=== PATIENT | female | born 1935 | race Caucasian/White ===

== ENCOUNTER 2018-03-28 07:09 | Observation (INO) | payer MEDICARE, OTHER ==
[~2018-03-28] VITALS: Ht 157.5 cm; Wt 79.8 kg
[~2018-03-28 07:09] MED LIST: ASPIRIN81 M2 PO; ATENOLOL 25 MG25 M1 PO; BLACK COHOSH40 MG PO; CALCIUM 600 +1 EAC1 PO; CO Q-10100 MG PO; COLACE100 MG PO; DIOVAN320 MG PO; FISH OIL 1,0001 EAC5 PO; GLUCOPHAGE500 MG PO; HYDROCODONE-AP1 EAC6 PO; MIRALAX17 GM PO; MULTIVITAMINS1 EAC7 PO; NORVASC5 MG PO
[2018-03-28 07:14] VITALS: BP 165/85
[2018-03-28 07:31] LABS: ABSOLUTE LYMPHOCYTES 3.7 thou/uL (0.8-5.3); HEMOGLOBIN 15.4 gm/dL (12.0-15.0)
[2018-03-28 07:35] LABS: ABSOLUTE EOSINOPHILS 0.1 thou/uL (0.0-0.7); ABSOLUTE MONOCYTES 0.5 thou/uL (0.0-1.2); ABSOLUTE NEUTROPHILS 3.5 thou/uL (1.6-8.1); BASOPHILS 0.2 %; EOSINOPHILS 1.6 %; HEMATOCRIT 45.2 % (37.0-47.0); MCV 85.3 fL (80.0-100.0); MONOCYTES 6.6 %; MPV 9.6 fl. (7.2-11.1); NUCLEATED RBCS 0 /100WBC; PLATELET COUNT* 205 thou/uL (150-400); POLYS 44.6 %; RDW-CV 14.2 % (10.5-14.5); WBC 7.9 thou/uL (4.0-11.0)
[2018-03-28 07:44] LABS: APTT 27.7 Seconds (25.0-31.3); INR 1.1; PROTIME 10.3 Seconds (9.20-11.50)
[2018-03-28 07:51] LABS: ANION GAP 15 mmol/L (7-16); BUN 15 mg/dL (7-18); CHLORIDE 99 mmol/L (98-107); CO2 22 mmol/L (21-32); CREATININE 0.9 mg/dL (0.6-1.3); GLUCOSE 326 mg/dL (70-99); SODIUM 136 mmol/L (136-145)
[2018-03-28 08:13] LABS: ALKALINE PHOSPHATASE 183 U/L (46-116); CK-MB MASS 0.9 ng/mL (<0.5-3.6); LIPASE 102 U/L (73-393); NT-PRO BRAIN NAT PEPTIDE 118 pg/mL (<300); SGOT 35 U/L (15-37); SGPT 83 U/L (30-65); TOTAL BILIRUBIN 0.3 mg/dL (<0.1-1.0); TOTAL PROTEIN 8.4 g/dL (6.4-8.2); TROPONIN-I LEVEL <0.06 ng/mL (<0.06)
[2018-03-28 10:41] VITALS: BP 159/82
--- NOTE | 2018-03-28 10:42 | NUR ---
PATIENT HAS REMAINED NPO
[2018-03-28 16:42] VITALS: BP 157/73
--- NOTE | 2018-03-28 18:43 | EKG ---
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 AGGARWAL : 1935 Requested By: Neo Burks Order Number: [id number] MD: Devin Joiner Measurements Intervals [place] Rate: 65 P: 51 SC: 158 QRS: -35 QRSD: 91 T: 46 QT: 430 QTc: 448 Interpretive Statements Sinus rhythm Probable left atrial enlargement Inferior infarct, old Probable anterior infarct, age indeterminate Compared to ECG 05/15/2016 16:31:57 No significant changes Electronically Signed On 03-28-2018 18:43:24 CDT by Devin Joiner [email or web address] <ELECTRONICALLY SIGNED> By: Devin Joiner MD, [facility] 03/28/18 1843 Devin Joiner MD, [facility] /EPI
--- NOTE | 2018-03-28 19:18 | NUR ---
PATIENT RESTING IN BED. 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 RIGHT GROIN SITE CLEAN/DRY/INTACT WITH NO S/S OF HEMATOMA FORMATION. 2+ PULSES IN BILAT LOWER EXTREMETIES. HOURLY ROUNDING COMPLETD FOR PATINET SAFETY. PATIENT AOX4 AND APPROPRIATE.
[2018-03-28 20:11] VITALS: BP 137/57
[2018-03-29] VITALS (8 sets, daily range): BP systolic 133–158; BP diastolic 59–73
[2018-03-29 04:31] LABS: HEMOGLOBIN 13.5 gm/dL (12.0-15.0); MCH 28.7 pg (26.0-34.0); MCHC 33.8 g/dL (28.0-37.0); MCV 84.8 fL (80.0-100.0); MPV 9.9 fl. (7.2-11.1); RBC 4.71 mil/uL (4.20-5.00); RDW-CV 14.2 % (10.5-14.5); WBC 9.2 thou/uL (4.0-11.0)
[2018-03-29 04:51] LABS: ALBUMIN 3.4 g/dL (3.4-5.0); ALKALINE PHOSPHATASE 103 U/L (46-116); ANION GAP 13 mmol/L (7-16); BUN 11 mg/dL (7-18); CALCIUM 8.5 mg/dL (8.5-10.1); CHLORIDE 104 mmol/L (98-107); CHOLESTEROL 194 mg/dL (<200); CO2 21 mmol/L (21-32); CREATININE 0.7 mg/dL (0.6-1.3); GLUCOSE 351 mg/dL (70-99); HDL CHOLESTEROL 37 mg/dL (>40); LDL CHOLESTEROL 107 mg/dL (<100); POTASSIUM 3.8 mmol/L (3.5-5.1); SGOT 32 U/L (15-37); SGPT 72 U/L (30-65); SODIUM 138 mmol/L (136-145); TC:HDL 5.2 Ratio (Not establshd); TOTAL BILIRUBIN 0.6 mg/dL (<0.1-1.0); TOTAL PROTEIN 6.6 g/dL (6.4-8.2); TRIGLYCERIDE 254 mg/dL (<150); TROPONIN-I LEVEL 0.07 ng/mL (<0.06); VLDL 51 mg/dL (<40)
[2018-03-29 04:53] LABS: SERUM ASSESSMENT Clear
--- NOTE | 2018-03-29 05:28 | NUR ---
PT IS ABLE TO COMMUNICATE HER NEEDS TO STAFF EFFECTIVELY. SHE HAS DENIED THE NEED FOR PAIN MEDICATION UP TO THIS TIME. PT REMAINED ON BED REST UNTIL 23:30 ON 03/28/18 FOLLOWING HER CARDIAC CATH YESTERDAY. CATH SITE HAD SOME OOZ BLEEDING EARLY DURING THIS SHIFT; DRESSING CHANGED, PRESSURE HELD FOR 5 MIN WITH POSITIVE RESULT; NEW DRESSING C/D/I UP TO THIS TIME. NO OBSERVABLE EVIDENCE OF A HEMATOMA UP TO THIS TIME. POSSIBLE DISCHARGE HOME TODAY.
[2018-03-29] MEDS ORDERED: BRILINTA90 MG PO (10:26)
[2018-03-29] MEDS ORDERED: NITROGLYCERIN0.4 MG SUBLING (10:27)
[2018-03-29] MEDS ORDERED: LIPITOR 20 MG T20 M1 PO (10:28)
--- NOTE | 2018-03-29 10:38 | EKG ---
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
--- NOTE | 2018-03-29 11:09 | NUR ---
CM SPOKE TO THE PATIENT TO DISCUSS HOME SITUATION, DISCHARGE PLANNING, AND TO INFORM OF THE ROLE OF CM. PATIENT ALERT, ORIENTED, AND INDEPENDENT WITH ADL'S. PATIENT ACTIVE AND DRIVES. PATIENT OWNS 0 DME. PATIENT HAS NO HX OF HH OR SNF. CM WILL REMAIN AVAILABLE TO ASSIST AND FOLLOW NEEDED.
--- NOTE | 2018-03-29 14:15 | NUR ---
ORDER RECEIVED TO DISCHARGE [facility] HOME TO SELF CARE. MED REC, MEDICATION EDUCATION, STROKE EDUCATION, RIGHT GROUN SITE CARE, NEED FOR FOLLOW UP APPOINTMENTS WITH CARDIOLOGY, AND LFITING RESTICTIONS COVERED AND STATED UNDERSTOOD BY PATIENT AND . EDUCATION FOR NEW MEDICATIONS COMPLETED AND PATIENT GIVEN AMPLE TIME TO HAVE ALL QUESTION ANSWERED TO HER SATISFACTION. IV REMOVED FROM L AC AND TELEMETRY PACK REMOVED. HOURLY ROUNDING COMPLETED FOR PATIENT SAFETY AND PATIENT PARTICIPATE DIN PLAN OF CARE. PATIENT TAKEN VIA WHEELCHAIR TO AWAITING CAR WITH SPOUSWE PRESENT. PATENT IN NO APPARENT DISTRESS AT TIME OF DISCHARGE. DISCHARGE TIME OF 13:15.
--- NOTE | 2018-04-02 11:54 | CARD ---
[address] [address] CARDIAC CATH REPORT Name: MORENOASHER Room: [address] Herbie Sibley#: [id number] Admission: 03/28/18 Attend Phys: Bridgette Galeana Discharge: 03/29/18 Date of : 37 Report #: [id number] THIS REPORT FOR: //name// APPROVED REPORT Study performed: 03/28/2018 16:36:34 Patient Details Patient Status: In-Patient Room #: 201 The patient is a 82 year-old female Event Personnel Devin Joiner Salvage Inspector, Jenn White RN Plastic Surgery Manager, Silva Ritchie, Rose Mary Patten RTR Scrub, Stephanie Aguilar RN Plastic Surgery Manager Procedures Performed Art Access - R femoral artery* Left Heart Cath w/or w/o Coronaries [id number] [facility] Place w/wo Plasty Single LAD [id number] Indication Unstable angina Risk Factors Hypercholesterolemia, Hypertension Admission/Lab Medications/Medications given during procedure Aspirin, Platelet Aff. Inhib., Angiomax bolus and infusion Procedure Narrative The patient was brought electively to the Cardiac Catheterization Laboratory and was prepped and draped in a sterile manner. The right femoral was infiltrated with 2% Lidocaine subcutaneous anesthesia. A 6fr Ultimum Sheath sheath was inserted into the right femoral artery. Coronary angiography was performed using coronary diagnostic catheters. The right coronary system was accessed and visualized with a 6fr JR 4 catheter. The left coronary system was accessed and visualized with a 6fr JL 4 catheter. The left ventricle was accessed and visualized with a 6fr Straight Pigtail catheter. Left ventricular/Aortic Valve gradient assessed . Left ventriculogram was performed in DUFFY projection. Pre-demployment femoral angiogram was performed . Closure device was deployed with a 6 Fr Angioseal STS 6Fr. The patient tolerated the procedure well and there were no complications associated with the procedure. [place] [address] CARDIAC CATH REPORT Name: ASHER MORENO Room: [address] Maryjo#: [id number] Admission: 03/28/18 Attend Phys: Bridgette Galeana Discharge: 03/29/18 Date of : 37 Report #: [id number] hematoma. Intraoperative Conscious Sedation Sedation start time: 17:22 Case end Time: 18:05 Fentanyl 25 mcg Versed 3 mg Fluoro Time: 8.9 minutes Dose: DAP 83832 cGycm2 893.04 mGy Contrast Type and Amount: Visipaque 215 ml Coronary Angiography The patient's coronary anatomy is right dominant. Diagnostic Cath Left Main 0% narrowing LAD 30% proximal narrowing with 90% tubular mid vessel stenosis and 50% distal narrowing Circumflex 80% tubular mid vessel stenosis Right Coronary Large dominant vessel with 40% distal narrowing and 60% tubular narrowing of the midportion of the posterolateral left ventricular branch Left Ventriculography The left ventricle is normal in size with normal contractility. The left ventricular ejection fraction is estimated to be 65%. Left ventricular wall motion abnormalities are not present. There is no mitral insufficiency. Hemodynamics The aortic pressure is 129/53 mmHg with a mean of mmHg. The left ventricular pressure is 125/4 mmHg with a mean of mmHg. The left ventricular end diastolic pressure is 7 mmHg. There was no gradient across the aortic valve upon pullback. Pullback from the left ventricle to the aorta revealed no gradient across the aortic valve. PCI Technique Lesion Percutaneous coronary intervention was performed on the mid left anterior descending artery segment. The lesion stenosis prior to intervention was 90% with JOHANNA 3 flow. A 6FR LAUNCHER JL4.0 Guide Catheter was used to engage the ostium. A IG: ProwaterFlex 180CM Interventional Guidewire was used to cross the lesion. BALLOON DILATION A Balloon catheter Trek RX 2.25 X 12 was [place] [address] CARDIAC CATH REPORT Name: ASHER MORENO Room: [address] MBlankRBlank#: [id number] Admission: 03/28/18 Attend Phys: Bridgette Galeana Discharge: 03/29/18 Date of : 37 Report #: [id number] 8.00atm for 7seconds. Additional Inflation: 10.00atm for 11seconds. STENT DEPLOYMENT A drug-eluting stent Xience Alpine RX 2.25X23 was inserted and inflated up to 10.00atm for 13seconds. Additional Inflation: 10.00atm for 13seconds. Additional Inflation: 11.00atm for 10seconds. Final angiography reveals 0 % stenosis with JOHANNA 3 flow. Conclusion #1 significant coronary artery disease characterized by the following: A 90% mid LAD stenosis with 50% distal narrowing B 80% narrowing of the midportion of the nondominant circumflex C large dominant right coronary artery with 40% distal narrowing and 60% narrowing of the midportion of the posterolateral left ventricular branch #2 normal left ventricular systolic function, estimated ejection fraction being 65% #3 normal left-sided hemodynamics study #4 successful percutaneous coronary intervention with deployment of drug-eluting stent at site of 90% mid LAD stenosis with 0% residual narrowing and JOHANNA-3 flow the distal vessel Recommendations Cardiac Risk Reduction Program Aggressive Medical Therapy Medications Administered Aspirin (any) Ticagrelor Diagnostic Cath Approved by: Devin Joiner MD Date/Time: 04/02/18 1153 hrs. <ELECTRONICALLY SIGNED> By: Devin Joiner MD, [facility] 04/02/18 1154 1154 1154Devin Joiner MD, FACC /INF
== END 2018-03-29 13:17 | disposition home or self-care (01) ==
LOC: M.ERS 07:09 → M.TBA-ER 08:59 → M.2W 08:59
PROVIDERS: Family Medicine; Internal Medicine; ADMIT Internal Medicine
DX: I25.110 Atherosclerotic heart disease of native coronary artery with unstable angina pectoris (principal); I10 Essential (primary) hypertension; E78.5 Hyperlipidemia, unspecified; E11.9 Type 2 diabetes mellitus without complications; K21.9 Gastro-esophageal reflux disease without esophagitis; Z95.5 Presence of coronary angioplasty implant and graft; Z90.710 Acquired absence of both cervix and uterus

== ENCOUNTER → 2019-06-22 | Outpatient (CLI) | payer OTHER ==
[~2019-06-22] MED LIST changes: +BRILINTA90 MG PO; +LIPITOR 20 MG T20 M1 PO; +NITROGLYCERIN0.4 MG SUBLING
--- NOTE | 2019-06-22 17:42 | CARDNUC ---
[place] [address] CARDIAC NUCLEAR IMAGING REPORT Name: JT MORENO Room: [facility]#: [id number] Admission: 06/22/19 Attend Phys: Bridgette Marquis Discharge: Date of : 37 Date of Service: 06/22/19 1742 Report #: [id number] THIS REPORT FOR: //name// APPROVED REPORT Study performed: 06/22/2019 11:33:19 Exam: Nuclear Stress Test Indication: CAD s/p PCI Patient Location: Out-Patient Stress Tech: Lucinda Lehman Stress Nurse: Annabelle Adler RN NM Tech:DANNY Stein Ht: 5 ft 2 in Wt: 172 lbs BSA: 1.79 m2 BMI: 31.45 Medical History Medical History: Hyperlipidemia, HTN, Diabetic Noninsulin, Carotid artery disease Medications: AMLODIPINE, ASA, ATENALOL, PSARUGREL, TELMISARTAN Allergies: AZITHROMYCIN, CLINDAMYCIN, SULFA, LEVOFLOXACIN, NITROFURATIN Previous Cardiac Procedures: PCI Meds Held (24 hrs): ATENALOL Stress Test Details Stress Test: Pharmacologic stress testing performed using 0.4 mg of regadenoson per 5 mL given IV over 10 seconds. Reason for pharmacologic stress test: physical limitation. Reversal agent Aminophyline 60 mg, given intravenously for dizziness. HR Resting HR: 76 bpm Max Heart Rate (APMHR): 137 bpm Max HR Achieved: 126 bpm Target HR (85% APMHR): 116 bpm % of APMHR: 91 Recovery HR: 95 bpm HR response to stress: Normal HR response to stress BP Resting BP: 139/77 mmHg Max BP: 157/113 mmHg BP response to stress: [place] [address] CARDIAC NUCLEAR IMAGING REPORT Name: JT MORENO [id number] Admission: 06/22/19 Attend Phys: Bridgette Marquis Discharge: Date of : 37 Date of Service: 06/22/19 1742 Report #: [id number] stress. ECG Resting ECG: Sinus Rhythm, Anterior FL pattern Stress ECG: Sinus tachycardia, Anterior FL pattern ST Change: None Arrhythmia: None Recovery ECG: Sinus Rhythm, Anterior FL pattern Recovery ST Change: None Recovery Arrhythmia: VPC Clinical Reason for Termination: Completed protocol Stress Symptoms: Dyspnea, Headache, TACHYCARDIA Symptoms resolved with caffeine. Nurse Comments PT UNABLE TO WALK ON TREADMILL D/T UNSTEADY GAIT AND FATIGUE. PT WAS GIVEN CAFFEINE UPON COMPLETION OF TEST D/T TACHYCARDIA AND SOB SX'S. SYMPTOMS COMPLETELY RESOLVED PRIOR TO LEAVING AREA. Stress ECG Conclusion Normal hemodynamic response to pharmacologic stress. ECG: Non-ischemic Clinical: Non-ischemic NM EXAM: Myocardial Perfusion REST/STRESS Imaging Protocol: Rest Tc-99m/Stress Tc-99m 1 day Resting Data Rest SPECT myocardial perfusion imaging was performed in supine position 30 minutes following the intravenous injection of 10.0 mCi of Tc-99m Sestamibi. Time of rest injection: 1015 Date: 06/22/2019 The images were gated to evaluate regional wall motion and calculate left ventricular ejection fraction. Administration Route: IV Pharmacologic Stress Pharmacologic stress test was performed by injecting Regadenoson 0.4 mg IV push followed by the intravenous injection of 34.2 mCi of Tc-99m Sestamibi. Time of stress injection: 1155 Date: 06/22/2019 Administration Route: IV Gated Stress SPECT was performed 40 minutes after stress injection. The images were gated to evaluate regional [place] [address] CARDIAC NUCLEAR IMAGING REPORT Name: ALEX MORENONATALIIA STERLING Room: [facility]#: [id number] Admission: 06/22/19 Attend Phys: Bridgette Marquis Discharge: Date of : 37 Date of Service: 06/22/19 1742 Report #: [id number] left ventricular ejection fraction. Prone imaging was performed. Study Quality Study: Good Artifact: Mild Diaphragmatic artifact Lung Uptake: Normal Study Data At rest, the left ventricular ejection fraction was 82%.. Post stress, the left ventricular ejection was 87%.. TID = 1.13. Perfusion The resting study demonstrated a small mild inferior defect and excessive bowel uptake. The post stress images demonstrated a very small mild inferior defect less impressive than seen at rest and a small mild lateral defect. The prone images demonstrated only a very small very mild apical defect. There are no reversible defects seen is no evidence of myocardial ischemia. Images were reviewed using [employer]. Wall Motion Normal left ventricular wall motion. Nuclear Conclusion ECG Findings: negative for ischemia Clinical Findings: negative for ischemia Nuclear Findings: negative for ischemia Exercise Capacity: not assessed Left Ventricular Function: normal Risk Study: low Normal study. No scintigraphic evidence for myocardial ischemia or scar. <Conclusion> Normal hemodynamic response to pharmacologic stress. ECG: Non-ischemic Clinical: Non-ischemic <ELECTRONICALLY SIGNED> By: Paul Mota MD, FACC 06/22/191741 41 41 Paul Mota MD, FACC /INF
== END ==
LOC: M.NUC 01-10 15:18 → M.CRD 09:00 → M.NUC 09:39
DX: I25.10 Atherosclerotic heart disease of native coronary artery without angina pectoris (principal); E78.00 Pure hypercholesterolemia, unspecified; E11.9 Type 2 diabetes mellitus without complications; E78.5 Hyperlipidemia, unspecified; Z79.899 Other long term (current) drug therapy; Z95.5 Presence of coronary angioplasty implant and graft; Z88.8 Allergy status to other drugs, medicaments and biological substances; Z88.1 Allergy status to other antibiotic agents; Z88.2 Allergy status to sulfonamides